=== PATIENT | male | born 1930 | race Caucasian/White ===

== ENCOUNTER 2017-06-01 18:43 | Emergency (ER) | payer MEDICARE, MEDICAID ==
[~2017-06-01] VITALS: Ht 172.7 cm; Wt 82.0 kg
[2017-06-01] MEDS ORDERED: ASPI-1159 PO (19:03)
[2017-06-01] MEDS ORDERED: NEPVIT PO (19:03)
[2017-06-01] MEDS ORDERED: PRAV20TA57 PO (19:03)
[2017-06-01] MEDS ORDERED: FINA5TAB11 PO (19:03)
[2017-06-01] MEDS ORDERED: DILT240C92 PO (19:03)
[2017-06-01] MEDS ORDERED: ONDANSETRON HCL 4MG/2ML VIAL IV STA (19:31)
[2017-06-01 20:28] LABS: BASOPHILS % 0.9 % (0.0-2.0); EOSINOPHILS % 3.5 % (0.0-5.0); HEMATOCRIT. 38.4 % (42.0-52.0); LYMPHOCYTES % 13.7 % (20.0-50.0); MEAN CORPUSCULAR HEMOGLOBIN 30.1 pg (28.0-32.0); MEAN CORPUSCULAR VOLUME 89.2 fL (80.0-94.0); MEAN PLATELET VOLUME 8.6 fl (7.4-10.4); MONOCYTES % 9.4 % (2.0-8.0); NEUTROPHILS % 72.5 % (40.0-76.0); PLATELET 144 x1000/uL (130-400); RED BLOOD CELL COUNT 4.31 mill/uL (4.7-6.1); RED CELL DISTRIBUTION WIDTH 14.9 % (11.6-14.6)
[2017-06-01 20:33] LABS: CHLORIDE 96 mEq/L (98-107)
[2017-06-01 20:36] LABS: CARBON DIOXIDE 25 mEq/L (21-32)
[2017-06-01 22:00] VITALS: BP 161/63
[2017-06-01] MEDS ORDERED: SODIUM CHLORIDE 0.9% 250 ML IV ONE (22:00)
== END 2017-06-01 23:00 | disposition home or self-care (01) ==
LOC: ER 20:07
DX: E87.1 Hypo-osmolality and hyponatremia (principal); I12.0 Hypertensive chronic kidney disease with stage 5 chronic kidney disease or end stage renal disease; N19 Unspecified kidney failure; R11.2 Nausea with vomiting, unspecified; R42 Dizziness and giddiness; Z99.2 Dependence on renal dialysis; Z79.82 Long term (current) use of aspirin
CPT/HCPCS: 36415; 80053; 85025; 93005; 96361; 96374; 99285; J2405; J7050

== ENCOUNTER 2017-12-02 08:09 | Inpatient (IN) | payer MEDICARE, MEDICAID ==
[~2017-12-02] VITALS: Ht 172.7 cm; Wt 79.8 kg
[~2017-12-02 08:09] MED LIST: ASPI-1159 PO; DILT240C92 PO; FINA5TAB11 PO; NEPVIT PO; PRAV20TA57 PO
[2017-12-02] MEDS ORDERED: NITROGLYCERIN OINT 1GM/INCH UDPKT TD STA (08:57)
[2017-12-02 09:17] LABS: BASOPHILS % 0.6 % (0.0-2.0); EOSINOPHILS % 3.2 % (0.0-5.0); HEMATOCRIT. 33.8 % (42.0-52.0); HEMOGLOBIN. 11.2 g/dL (14.0-18.0); LYMPHOCYTES % 10.8 % (20.0-50.0); MEAN CORPUSCULAR HEMOGLOBIN 31.1 pg (28.0-32.0); MEAN CORPUSCULAR VOLUME 93.7 fL (80.0-94.0); MEAN PLATELET VOLUME 8.6 fl (7.4-10.4); MONOCYTES % 9.7 % (2.0-8.0); NEUTROPHILS % 75.7 % (40.0-76.0); PLATELET 187 x1000/uL (130-400); RED BLOOD CELL COUNT 3.61 mill/uL (4.7-6.1); RED CELL DISTRIBUTION WIDTH 16.4 % (11.6-14.6)
[2017-12-02 09:22] LABS: CHLORIDE 97 mEq/L (98-107); D-DIMER 1.45 mg/L FEU (<0.50); INR 1.1; PROTHROMBIN TIME 11.4 sec (9.4-11.6)
[2017-12-02] MEDS ORDERED: VANCOMYCIN 1 G PREMIX 200 ML IV ONE (10:00)
[2017-12-02] MEDS ORDERED: PIPERACILLIN/TAZ 3.375G PREMIX 50 ML IV ONE (10:00)
[2017-12-02] MEDS ORDERED: ONDANSETRON HCL 4MG/2ML VIAL IV PRN (10:15)
[2017-12-02] MEDS ORDERED: CLONIDINE 0.1MG TABLET PO PRN (10:15)
[2017-12-02] MEDS ORDERED: IOHEXOL-350 100 ML BOTTLE ONE (11:22)
[2017-12-02] MEDS: LOSARTAN POTASSIUM 50 MG TABLET PO SCH (15:00)
[2017-12-02 15:36] VITALS: BP 163/78
[2017-12-02] MEDS: FINASTERIDE 5MG TABLET PO SCH (16:45)
[2017-12-02] MEDS: FOLIC ACID/VITAMIN B COMP W-C TABLET PO SCH (16:45)
[2017-12-02] MEDS: ASPIRIN 81MG EC TABLET PO SCH (16:45)
[2017-12-02] MEDS: ENOXAPARIN 30MG/0.3ML SYR SUBCUT SCH ×2 (18:00→20:22)
[2017-12-02 20:00] VITALS: BP 141/79
[2017-12-02] MEDS: METOPROLOL TARTRATE 25MG TABLET PO SCH (20:21)
[2017-12-02] MEDS ORDERED: PNEUMOCOCCAL 23-VAL P-SAC VAC 0.5 ML IM ONE (20:30)
[2017-12-03] VITALS (7 sets, daily range): BP systolic 136–165; BP diastolic 63–85
[2017-12-03 07:41] LABS: EOSINOPHILS % 5.3 % (0.0-5.0); HEMATOCRIT. 28.5 % (42.0-52.0); HEMOGLOBIN. 9.5 g/dL (14.0-18.0); LYMPHOCYTES % 15.6 % (20.0-50.0); MEAN CORPUSCULAR HEMOGLOBIN 31.2 pg (28.0-32.0); MEAN CORPUSCULAR VOLUME 93.5 fL (80.0-94.0); MEAN PLATELET VOLUME 8.8 fl (7.4-10.4); MONOCYTES % 12.5 % (2.0-8.0); NEUTROPHILS % 65.6 % (40.0-76.0); PLATELET 144 x1000/uL (130-400); RED BLOOD CELL COUNT 3.04 mill/uL (4.7-6.1); RED CELL DISTRIBUTION WIDTH 16.5 % (11.6-14.6)
[2017-12-03] MEDS: FINASTERIDE 5MG TABLET PO SCH (08:28)
[2017-12-03] MEDS: ASPIRIN 81MG EC TABLET PO SCH (08:28)
[2017-12-03] MEDS: FOLIC ACID/VITAMIN B COMP W-C TABLET PO SCH (08:28)
[2017-12-03 08:29] LABS: PHOSPHORUS 3.5 mg/dL (2.5-4.9)
[2017-12-03] MEDS: METOPROLOL TARTRATE 25MG TABLET PO SCH ×2 (08:29→21:50)
[2017-12-03] MEDS: LOSARTAN POTASSIUM 50 MG TABLET PO SCH (08:29)
[2017-12-03] MEDS ORDERED: IPRATROPIUM/ALBUTEROL 0.5-3(2.5)MG/3ML NEB HHN PRN (13:30)
[2017-12-03] MEDS: AZITHROMYCIN 500 MG TABLET PO SCH (13:46)
[2017-12-03] MEDS: CEFTRIAXONE 1 G PREMIX 50 ML IV SCH (15:48)
[2017-12-03] MEDS: ENOXAPARIN 30MG/0.3ML SYR SUBCUT SCH (17:50)
[2017-12-03] MEDS ORDERED: EPOETIN ALFA 10000UNITS/ML VIAL SUBCUT SCH (21:00)
[2017-12-04] VITALS: BP 161/83
[2017-12-04 04:00] VITALS: BP 158/80
[2017-12-04 04:25] LABS: CLARITY URINE CLEAR (CLEAR); COLOR URINE YELLOW (YELLOW); KETONES URINE NEGATIVE (NEGATIVE); LEUKOCYTE ESTERASE URINE NEGATIVE (NEGATIVE); NITRITE URINE NEGATIVE (NEGATIVE); OCCULT BLOOD URINE NEGATIVE (NEGATIVE); PH URINE >=9.0 (4.5-8.0); PROTEIN URINE 3+ (NEGATIVE); SPECIFIC GRAVITY URINE 1.015 (1.005-1.030)
[2017-12-04 07:34] LABS: BASOPHILS % 0.6 % (0.0-2.0); EOSINOPHILS % 7.8 % (0.0-5.0); HEMATOCRIT. 29.4 % (42.0-52.0); HEMOGLOBIN. 9.8 g/dL (14.0-18.0); LYMPHOCYTES % 19.1 % (20.0-50.0); MEAN CORPUSCULAR HEMOGLOBIN 31.5 pg (28.0-32.0); MEAN CORPUSCULAR VOLUME 93.8 fL (80.0-94.0); MEAN PLATELET VOLUME 8.7 fl (7.4-10.4); MONOCYTES % 13.2 % (2.0-8.0); NEUTROPHILS % 59.3 % (40.0-76.0); PLATELET 141 x1000/uL (130-400); RED BLOOD CELL COUNT 3.13 mill/uL (4.7-6.1); RED CELL DISTRIBUTION WIDTH 16.4 % (11.6-14.6)
[2017-12-04] MEDS: METOPROLOL TARTRATE 25MG TABLET PO SCH (07:42)
[2017-12-04 08:00] VITALS: BP 140/67
[2017-12-04 08:13] LABS: PHOSPHORUS 5.3 mg/dL (2.5-4.9)
[2017-12-04] MEDS ORDERED: LOSARTAN POTASSIUM 100 MG TABLET PO SCH (09:00)
[2017-12-04] MEDS: CEFTRIAXONE 1 G PREMIX 50 ML IV SCH (11:41)
[2017-12-04] MEDS: FINASTERIDE 5MG TABLET PO SCH (11:41)
[2017-12-04] MEDS: AZITHROMYCIN 500 MG TABLET PO SCH (11:41)
[2017-12-04] MEDS: ASPIRIN 81MG EC TABLET PO SCH (11:41)
[2017-12-04] MEDS: FOLIC ACID/VITAMIN B COMP W-C TABLET PO SCH (11:41)
[2017-12-04 12:00] VITALS: BP 128/62
[2017-12-04 16:00] VITALS: BP 124/50
[2017-12-04 16:14] VITALS: BP 124/80
[2017-12-04] MEDS ORDERED: METOPROLOL TARTRATE 50MG TABLET PO SCH (21:00)
[2017-12-05] MEDS ORDERED: LOSARTAN POTASSIUM 50 MG TABLET PO SCH (09:00)
== END 2017-12-04 17:00 | disposition home or self-care (01) | DRG 193 ==
LOC: ER 08:09 → 6WST 10:05 → EDBEDREQ 10:08 → EDBEDREQTM 10:08 → ENRESERV 14:20
PROVIDERS: ADMIT Internal Medicine; ATTEND Internal Medicine
PROC: 5A1D70Z Performance of Urinary Filtration, Intermittent, Less than 6 Hours Per Day (ICD-10-PCS; principal; 2017-12-02)
PROC: 5A1D70Z Performance of Urinary Filtration, Intermittent, Less than 6 Hours Per Day (ICD-10-PCS; 2017-12-04)
DX: J18.1 Lobar pneumonia, unspecified organism (principal); N18.6 End stage renal disease; J96.01 Acute respiratory failure with hypoxia; I13.2 Hypertensive heart and chronic kidney disease with heart failure and with stage 5 chronic kidney disease, or end stage renal disease; I27.20 Pulmonary hypertension, unspecified; E83.39 Other disorders of phosphorus metabolism; N25.81 Secondary hyperparathyroidism of renal origin; I50.9 Heart failure, unspecified; E66.9 Obesity, unspecified; D63.8 Anemia in other chronic diseases classified elsewhere; N40.0 Benign prostatic hyperplasia without lower urinary tract symptoms; M10.9 Gout, unspecified; I25.10 Atherosclerotic heart disease of native coronary artery without angina pectoris; E78.5 Hyperlipidemia, unspecified; F32.9 Major depressive disorder, single episode, unspecified; N41.9 Inflammatory disease of prostate, unspecified; Z79.899 Other long term (current) drug therapy; Z82.49 Family history of ischemic heart disease and other diseases of the circulatory system; Z99.2 Dependence on renal dialysis; Z83.3 Family history of diabetes mellitus; Z79.82 Long term (current) use of aspirin; Z68.26 Body mass index [BMI] 26.0-26.9, adult
CPT/HCPCS: 36415; 71045; 71275; 80048; 80053; 80061; 81003; 82270; 83036; 83605; 83690; 83735; 83880; 84100; 84484; 85025; 85379; 85610; 87040; 90732; 93005; 93306; 93880; 96365; 96366; 96368; 99285; J0696; J0885; J1650; J2543; J3370; J7050; Q9967

== ENCOUNTER 2019-01-02 12:49 | Emergency (ER) | payer MEDICARE, MEDICAID ==
[~2019-01-02] VITALS: Ht 172.7 cm; Wt 79.0 kg
[2019-01-02 16:15] LABS: BASOPHILS % 0.9 % (0.0-2.0); EOSINOPHILS % 3.3 % (0.0-5.0); HEMATOCRIT. 39.6 % (42.0-52.0); HEMOGLOBIN. 13.3 g/dL (14.0-18.0); LYMPHOCYTES % 20.4 % (20.0-50.0); MEAN CORPUSCULAR HEMOGLOBIN 31.7 pg (28.0-32.0); MEAN CORPUSCULAR VOLUME 94.7 fL (80.0-94.0); MEAN PLATELET VOLUME 8.9 fl (7.4-10.4); MONOCYTES % 13.6 % (2.0-8.0); NEUTROPHILS % 61.8 % (40.0-76.0); PLATELET 197 x1000/uL (130-400); RED BLOOD CELL COUNT 4.18 mill/uL (4.7-6.1); RED CELL DISTRIBUTION WIDTH 15.6 % (11.6-14.6)
[2019-01-02 16:21] LABS: CHLORIDE 96 mEq/L (98-107)
[2019-01-02 16:23] LABS: PARTIAL THROMBOPLASTIN TIME 28.6 sec (23.4-31.0); PROTHROMBIN TIME 10.5 sec (9.6-11.0)
[2019-01-02 16:27] LABS: PHOSPHORUS 4.1 mg/dL (2.5-4.9)
[2019-01-02] MEDS ORDERED: TRAMADOL 50MG TABLET PO ONE (16:45)
[2019-01-02 17:45] VITALS: BP 152/59
== END 2019-01-02 18:00 | disposition home or self-care (01) ==
LOC: ER 12:49 → CANBEDREQ 20:30
DX: M79.671 Pain in right foot (principal); I12.0 Hypertensive chronic kidney disease with stage 5 chronic kidney disease or end stage renal disease; N18.6 End stage renal disease; N17.9 Acute kidney failure, unspecified; Z99.2 Dependence on renal dialysis; Z79.82 Long term (current) use of aspirin
CPT/HCPCS: 36415; 71045; 73630; 83735; 84100; 93005; 93923; 99284

== ENCOUNTER 2019-04-16 15:00 | Inpatient (IN) | payer MEDICARE, MEDICAID ==
[~2019-04-16] VITALS: Ht 342.9 cm; Wt 70.8 kg
[~2019-04-16 15:00] MED LIST changes: -ASPI-1159 PO; +ASPI-1393 PO; +CALC-586 PO; +[UNRECOGNIZED DRUG - OTHER]
[2019-04-16] MEDS ORDERED: SODIUM CHLORIDE 0.9% 1,000 ML IV ONE ×2 (15:34→17:42)
[2019-04-16 17:19] LABS: HEMATOCRIT. 37.3 % (42.0-52.0); HEMOGLOBIN. 12.1 g/dL (14.0-18.0); MEAN CORPUSCULAR VOLUME 92.5 fL (80.0-94.0); MEAN PLATELET VOLUME 7.9 fl (7.4-10.4); PLATELET 154 x1000/uL (130-400); RED BLOOD CELL COUNT 4.03 mill/uL (4.7-6.1); RED CELL DISTRIBUTION WIDTH 16.5 % (11.6-14.6)
[2019-04-16 17:24] LABS: CHLORIDE 98 mEq/L (98-107)
[2019-04-16 17:25] LABS: INR 1.1; PROTHROMBIN TIME 11.4 sec (9.6-11.0)
[2019-04-16 17:33] LABS: PLATELET ESTIMATE NORMAL
[2019-04-16] MEDS ORDERED: VANCOMYCIN 1 G PREMIX 200 ML IV ONE (17:45)
[2019-04-16] MEDS ORDERED: HALOPERIDOL LACTATE 5MG/ML VIAL IM ONE (17:45)
[2019-04-16] MEDS ORDERED: PIPERACILLIN/TAZ 3.375G PREMIX 50 ML IV ONE (17:45)
[2019-04-16] MEDS ORDERED: DIPHENHYDRAMINE 50MG/ML VIAL IV PRN (19:30)
[2019-04-16] MEDS ORDERED: ACETAMINOPHEN 325MG TABLET PO PRN (19:30)
[2019-04-16] MEDS ORDERED: IPRATROPIUM/ALBUTEROL 0.5-3(2.5)MG/3ML NEB INH PRN (19:30)
[2019-04-16] MEDS ORDERED: HYDROCODONE/ACETAMINOPHEN 5/325MG TABLET PO PRN (19:30)
[2019-04-16] MEDS ORDERED: DOCUSATE SODIUM 100MG CAPSULE PO PRN (19:30)
[2019-04-16] MEDS ORDERED: MAGNESIUM/ALUMINUM HYDROXIDE/SIMETHICONE 30ML UDC PO PRN (19:30)
[2019-04-16] MEDS ORDERED: ENOXAPARIN 40MG/0.4ML SYR SUBCUT SCH (19:30)
[2019-04-16] MEDS ORDERED: ONDANSETRON HCL 4MG/2ML INJ IV PRN (19:30)
[2019-04-16] MEDS ORDERED: GUAIFENESIN 200MG/10ML SUGAR FREE UDC PO PRN (19:30)
[2019-04-16] MEDS ORDERED: CLONIDINE 0.1MG TABLET PO PRN (19:30)
[2019-04-16 19:45] LABS: PHOSPHORUS 1.3 mg/dL (2.5-4.9)
[2019-04-16 23:46] LABS: CREATINE KINASE 331 IU/L (39-308)
[2019-04-16 23:47] LABS: CREATINE KINASE MB FRACTION < 1.0 ng/mL (0.5-3.6)
[2019-04-17] VITALS (12 sets, daily range): BP systolic 79–165; BP diastolic 32–71
[2019-04-17 05:00] LABS: BASOPHILS % 0.3 % (0.0-2.0); EOSINOPHILS % 0.8 % (0.0-5.0); HEMATOCRIT. 33.4 % (42.0-52.0); LYMPHOCYTES % 9.5 % (20.0-50.0); MEAN CORPUSCULAR HEMOGLOBIN 30.2 pg (28.0-32.0); MEAN CORPUSCULAR VOLUME 91.8 fL (80.0-94.0); MEAN PLATELET VOLUME 8.4 fl (7.4-10.4); MONOCYTES % 10.7 % (2.0-8.0); NEUTROPHILS % 78.7 % (40.0-76.0); PLATELET 138 x1000/uL (130-400); RED BLOOD CELL COUNT 3.64 mill/uL (4.7-6.1); RED CELL DISTRIBUTION WIDTH 17.1 % (11.6-14.6)
[2019-04-17 05:06] LABS: CHLORIDE 99 mEq/L (98-107)
[2019-04-17 05:13] LABS: LDL CHOLESTEROL 124 mg/dL (5-100)
[2019-04-17 05:14] LABS: HDL CHOLESTEROL 33 mg/dL (40-59)
[2019-04-17 05:15] LABS: CREATINE KINASE 309 IU/L (39-308)
[2019-04-17 05:18] LABS: CREATINE KINASE MB FRACTION < 1.0 ng/mL (0.5-3.6)
[2019-04-17] MEDS: ENOXAPARIN 30MG/0.3ML SYR SUBCUT SCH (09:56)
[2019-04-17] MEDS ORDERED: VANCOMYCIN 500 MG PREMIX 100 ML IV SCH (10:00)
[2019-04-17] MEDS ORDERED: CEFTRIAXONE 1 G PREMIX 50 ML IV SCH ×2 (21:00)
[2019-04-17] MEDS: ATORVASTATIN CALCIUM 20MG TABLET PO SCH (21:22)
[2019-04-18] VITALS (18 sets, daily range): BP systolic 90–142; BP diastolic 29–57
[2019-04-18 07:50] LABS: HEMATOCRIT. 33.6 % (42.0-52.0); MEAN CORPUSCULAR HEMOGLOBIN 30.2 pg (28.0-32.0); MEAN PLATELET VOLUME 8.2 fl (7.4-10.4); PLATELET 126 x1000/uL (130-400); RED BLOOD CELL COUNT 3.65 mill/uL (4.7-6.1); RED CELL DISTRIBUTION WIDTH 17.3 % (11.6-14.6)
[2019-04-18 08:16] LABS: PHOSPHORUS 4.4 mg/dL (2.5-4.9)
[2019-04-18 08:19] LABS: T4 FREE 1.01 ng/dL (0.76-1.46)
[2019-04-18] MEDS: ENOXAPARIN 30MG/0.3ML SYR SUBCUT SCH (09:29)
[2019-04-18] MEDS: ASPIRIN 81MG EC TABLET PO SCH (09:29)
[2019-04-18] MEDS: ATORVASTATIN CALCIUM 20MG TABLET PO SCH (20:46)
[2019-04-19 02:00] VITALS: BP 108/75
[2019-04-19 04:00] VITALS: BP 141/39
[2019-04-19 08:00] VITALS: BP 97/45
[2019-04-19] MEDS: ENOXAPARIN 30MG/0.3ML SYR SUBCUT SCH (08:53)
[2019-04-19] MEDS: ASPIRIN 81MG EC TABLET PO SCH (08:53)
[2019-04-19 09:07] LABS: BASOPHILS % 1.3 % (0.0-2.0); EOSINOPHILS % 7.6 % (0.0-5.0); HEMATOCRIT. 31.9 % (42.0-52.0); HEMOGLOBIN. 10.4 g/dL (14.0-18.0); MEAN CORPUSCULAR HEMOGLOBIN 30.2 pg (28.0-32.0); MEAN CORPUSCULAR VOLUME 92.6 fL (80.0-94.0); MEAN PLATELET VOLUME 8.9 fl (7.4-10.4); MONOCYTES % 14.8 % (2.0-8.0); NEUTROPHILS % 56.3 % (40.0-76.0); PLATELET 86 x1000/uL (130-400); RED BLOOD CELL COUNT 3.44 mill/uL (4.7-6.1)
[2019-04-19 09:21] LABS: PLATELET ESTIMATE SLIGHTLY DECREASED
[2019-04-19 09:39] LABS: PHOSPHORUS 3.6 mg/dL (2.5-4.9)
[2019-04-19 10:00] VITALS: BP 128/48
[2019-04-19 10:28] VITALS: BP 128/48
[2019-04-19] MEDS ORDERED: VANCOMYCIN 1 G PREMIX 200 ML IV SCH (11:00)
[2019-04-19 12:02] VITALS: BP 148/48
== END 2019-04-19 14:20 | disposition home or self-care (01) | DRG 871 ==
LOC: ER 15:15 → 5EST 18:41 → EDBEDREQTM 18:49 → ENRESERV 20:51
PROVIDERS: ADMIT Internal Medicine; ATTEND Internal Medicine
PROC: 5A1D70Z Performance of Urinary Filtration, Intermittent, Less than 6 Hours Per Day (ICD-10-PCS; principal; 2019-04-17)
DX: A41.9 Sepsis, unspecified organism (principal); N18.6 End stage renal disease; G93.40 Encephalopathy, unspecified; N25.81 Secondary hyperparathyroidism of renal origin; I13.2 Hypertensive heart and chronic kidney disease with heart failure and with stage 5 chronic kidney disease, or end stage renal disease; R65.20 Severe sepsis without septic shock; D63.8 Anemia in other chronic diseases classified elsewhere; E78.5 Hyperlipidemia, unspecified; I95.9 Hypotension, unspecified; D69.6 Thrombocytopenia, unspecified; D72.821 Monocytosis (symptomatic); E78.00 Pure hypercholesterolemia, unspecified; I27.20 Pulmonary hypertension, unspecified; I35.0 Nonrheumatic aortic (valve) stenosis; I50.9 Heart failure, unspecified; N40.0 Benign prostatic hyperplasia without lower urinary tract symptoms; Z79.82 Long term (current) use of aspirin; Z95.2 Presence of prosthetic heart valve; Z99.2 Dependence on renal dialysis; Z79.899 Other long term (current) drug therapy
CPT/HCPCS: 36415; 71045; 80048; 80061; 80202; 82550; 82553; 82962; 83605; 83735; 84100; 84145; 84439; 84443; 84481; 84484; 93005; 93306; 93970; 96365; 96375; 99291; J0696; J1630; J1650; J2543; J3370; J7030; J7050

== ENCOUNTER 2020-02-26 19:17 | Inpatient (IN) | payer MEDICARE, MEDICAID ==
[~2020-02-26] VITALS: Ht 172.7 cm; Wt 77.1 kg
[~2020-02-26 19:17] MED LIST changes: -ASPI-1393 PO; +ASPI-1497 PO; -DILT240C92 PO
[2020-02-26] MEDS ORDERED: ONDANSETRON HCL 4MG/2ML INJ IV STA (19:50)
[2020-02-26 20:25] LABS: BASOPHILS % 0.6 % (0.0-2.0); EOSINOPHILS % 0.7 % (0.0-5.0); HEMATOCRIT. 37.8 % (42.0-52.0); HEMOGLOBIN. 12.8 g/dL (14.0-18.0); LYMPHOCYTES % 16.2 % (20.0-50.0); MEAN CORPUSCULAR HEMOGLOBIN 31.3 pg (28.0-32.0); MEAN CORPUSCULAR VOLUME 92.3 fL (80.0-94.0); MEAN PLATELET VOLUME 8.6 fl (7.4-10.4); MONOCYTES % 13.6 % (2.0-8.0); NEUTROPHILS % 68.9 % (40.0-76.0); PLATELET 149 x1000/uL (130-400)
[2020-02-26 20:28] LABS: CHLORIDE 91 mEq/L (98-107)
[2020-02-26 20:29] LABS: INR 1.1; PROTHROMBIN TIME 11.6 sec (9.6-11.0)
[2020-02-26] MEDS ORDERED: HYDRALAZINE 20MG/ML VIAL IV ONE (20:45)
[2020-02-26] MEDS ORDERED: ASPIRIN 300MG SUPP PR ONE (21:45)
[2020-02-27] MEDS ORDERED: ASPIRIN 325MG EC TABLET PO ONE
[2020-02-27] MEDS ORDERED: MAGNESIUM/ALUMINUM HYDROXIDE/SIMETHICONE 30ML UDC PO PRN (01:15)
[2020-02-27] MEDS ORDERED: GUAIFENESIN 200MG/10ML SUGAR FREE UDC PO PRN (01:15)
[2020-02-27] MEDS ORDERED: ACETAMINOPHEN 325MG TABLET PO PRN ×2 (01:15)
[2020-02-27] MEDS ORDERED: DOCUSATE SODIUM 100MG CAPSULE PO PRN (01:15)
[2020-02-27] MEDS ORDERED: ZOLPIDEM TARTRATE 5MG TABLET PO PRN (01:15)
[2020-02-27] MEDS ORDERED: ONDANSETRON HCL 4MG/2ML INJ IV PRN (01:15)
[2020-02-27 04:30] VITALS: BP 161/65
[2020-02-27 04:59] VITALS: BP 161/65
[2020-02-27] MEDS: CLONIDINE 0.1MG TABLET PO PRN (05:02)
[2020-02-27] MEDS: SODIUM CHLORIDE 0.9% INJ 3ML FLUSH IVF SCH ×3 (06:13→20:18)
[2020-02-27 08:30] VITALS: BP 116/60
[2020-02-27] MEDS: FOLIC ACID/VITAMIN B COMP W-C TABLET PO SCH (08:44)
[2020-02-27] MEDS: ASPIRIN 81MG EC TABLET PO SCH (08:44)
[2020-02-27] MEDS: ENOXAPARIN 30MG/0.3ML SYR SUBCUT SCH (08:44)
[2020-02-27 12:30] VITALS: BP_SYST 101; BP_SYST 140; BP_SYST 155; BP_DIAS 54; BP_DIAS 70
[2020-02-27 16:00] VITALS: BP_SYST 145; BP_SYST 152; BP_SYST 157; BP_DIAS 60; BP_DIAS 65; BP_DIAS 67
[2020-02-27 20:00] VITALS: BP 152/54
[2020-02-27] MEDS: ATORVASTATIN CALCIUM 20MG TABLET PO SCH (20:18)
[2020-02-28] VITALS (7 sets, daily range): BP systolic 130–176; BP diastolic 50–69
[2020-02-28] MEDS: SODIUM CHLORIDE 0.9% INJ 3ML FLUSH IVF SCH ×3 (05:43→21:04)
[2020-02-28 06:33] LABS: BASOPHILS % 1.1 % (0.0-2.0); HEMATOCRIT. 35.6 % (42.0-52.0); MEAN CORPUSCULAR HEMOGLOBIN 31.8 pg (28.0-32.0); MEAN CORPUSCULAR VOLUME 94.4 fL (80.0-94.0); MEAN PLATELET VOLUME 8.5 fl (7.4-10.4); NEUTROPHILS % 59.9 % (40.0-76.0); PLATELET 135 x1000/uL (130-400); RED BLOOD CELL COUNT 3.77 mill/uL (4.7-6.1); RED CELL DISTRIBUTION WIDTH 18.4 % (11.6-14.6)
[2020-02-28 07:59] LABS: PHOSPHORUS 4.6 mg/dL (2.5-4.9)
[2020-02-28] MEDS: ASPIRIN 81MG EC TABLET PO SCH (09:39)
[2020-02-28] MEDS: LOSARTAN POTASSIUM 25 MG TABLET PO SCH (09:39)
[2020-02-28] MEDS: FOLIC ACID/VITAMIN B COMP W-C TABLET PO SCH (09:39)
[2020-02-28] MEDS: ENOXAPARIN 30MG/0.3ML SYR SUBCUT SCH (09:40)
[2020-02-28] MEDS: CLONIDINE 0.1MG TABLET PO PRN (12:29)
[2020-02-28] MEDS: AMLODIPINE 5MG TABLET PO SCH ×2 (12:29→21:04)
[2020-02-28] MEDS ORDERED: SODIUM POLYSTYRENE SULFONATE 15 G/60 ML BOT PO NR (16:00)
[2020-02-28] MEDS: ATORVASTATIN CALCIUM 20MG TABLET PO SCH (21:04)
[2020-02-29] VITALS: BP 177/58
[2020-02-29] MEDS: CLONIDINE 0.1MG TABLET PO PRN (00:24)
[2020-02-29 04:00] VITALS: BP 155/43
[2020-02-29] MEDS: SODIUM CHLORIDE 0.9% INJ 3ML FLUSH IVF SCH ×3 (06:00→21:21)
[2020-02-29 07:09] LABS: BASOPHILS % 1.6 % (0.0-2.0); EOSINOPHILS % 7.4 % (0.0-5.0); HEMATOCRIT. 29.8 % (42.0-52.0); HEMOGLOBIN. 10.1 g/dL (14.0-18.0); LYMPHOCYTES % 22.2 % (20.0-50.0); MEAN CORPUSCULAR HEMOGLOBIN 31.8 pg (28.0-32.0); MEAN PLATELET VOLUME 8.3 fl (7.4-10.4); MONOCYTES % 11.5 % (2.0-8.0); NEUTROPHILS % 57.3 % (40.0-76.0); PLATELET 124 x1000/uL (130-400); RED BLOOD CELL COUNT 3.17 mill/uL (4.7-6.1); RED CELL DISTRIBUTION WIDTH 17.7 % (11.6-14.6)
[2020-02-29 07:21] LABS: PHOSPHORUS 4.5 mg/dL (2.5-4.9)
[2020-02-29 08:00] VITALS: BP 183/68
[2020-02-29] MEDS: FOLIC ACID/VITAMIN B COMP W-C TABLET PO SCH (09:16)
[2020-02-29] MEDS: LOSARTAN POTASSIUM 25 MG TABLET PO SCH (09:16)
[2020-02-29] MEDS: ASPIRIN 81MG EC TABLET PO SCH (09:17)
[2020-02-29] MEDS: AMLODIPINE 5MG TABLET PO SCH ×2 (09:17→21:24)
[2020-02-29] MEDS: ENOXAPARIN 30MG/0.3ML SYR SUBCUT SCH (09:18)
[2020-02-29 12:00] VITALS: BP_SYST 168; BP_SYST 184; BP_DIAS 66; BP_DIAS 73
[2020-02-29] MEDS ORDERED: CLONIDINE 0.1MG TABLET PO PRN (13:30)
[2020-02-29] MEDS: CLONIDINE 0.2MG TABLET PO SCH ×2 (13:43→21:20)
[2020-02-29] MEDS ORDERED: CLONIDINE 0.1MG TABLET PO SCH (14:00)
[2020-02-29 16:00] VITALS: BP 167/68
[2020-02-29 20:00] VITALS: BP_SYST 132; BP_SYST 137; BP_DIAS 50; BP_DIAS 51
[2020-02-29] MEDS: ATORVASTATIN CALCIUM 20MG TABLET PO SCH (21:20)
[2020-03-01] VITALS: BP_SYST 150; BP_SYST 158; BP_DIAS 51; BP_DIAS 54
[2020-03-01 04:00] VITALS: BP 158/58
[2020-03-01] MEDS: SODIUM CHLORIDE 0.9% INJ 3ML FLUSH IVF SCH ×2 (05:40→14:43)
[2020-03-01] MEDS: CLONIDINE 0.2MG TABLET PO SCH (05:40)
[2020-03-01 08:00] VITALS: BP 104/56
[2020-03-01] MEDS: FOLIC ACID/VITAMIN B COMP W-C TABLET PO SCH (08:12)
[2020-03-01] MEDS: ASPIRIN 81MG EC TABLET PO SCH (08:13)
[2020-03-01] MEDS: ENOXAPARIN 30MG/0.3ML SYR SUBCUT SCH ×2 (08:13→08:24)
[2020-03-01] MEDS: LOSARTAN POTASSIUM 50 MG TABLET PO SCH ×2 (08:13→08:24)
[2020-03-01] MEDS: AMLODIPINE 5MG TABLET PO SCH ×2 (08:16→08:24)
[2020-03-01 08:20] LABS: BASOPHILS % 1.4 % (0.0-2.0); EOSINOPHILS % 7.4 % (0.0-5.0); HEMATOCRIT. 29.4 % (42.0-52.0); HEMOGLOBIN. 10.1 g/dL (14.0-18.0); LYMPHOCYTES % 25.2 % (20.0-50.0); MEAN CORPUSCULAR HEMOGLOBIN 31.8 pg (28.0-32.0); MEAN PLATELET VOLUME 8.5 fl (7.4-10.4); MONOCYTES % 9.9 % (2.0-8.0); NEUTROPHILS % 56.1 % (40.0-76.0); PLATELET 118 x1000/uL (130-400); RED BLOOD CELL COUNT 3.16 mill/uL (4.7-6.1); RED CELL DISTRIBUTION WIDTH 17.8 % (11.6-14.6)
[2020-03-01 08:45] LABS: PHOSPHORUS 6.1 mg/dL (2.5-4.9)
[2020-03-01 09:05] VITALS: BP 113/53
[2020-03-01] MEDS ORDERED: HYDRALAZINE HCL 10MG TABLET PO SCH ×2 (14:00→21:00)
[2020-03-01] MEDS ORDERED: AMLO-375 MT (14:46)
[2020-03-01] MEDS ORDERED: LOSA50TA41 MT (14:46)
[2020-03-01] MEDS ORDERED: SEVE800T8 MT (14:47)
[2020-03-01] MEDS ORDERED: HYDR-4133 MT (14:47)
[2020-03-01 14:51] VITALS: BP 143/59
[2020-03-01] MEDS ORDERED: SEVELAMER CARBONATE 800 MG TABLET PO SCH (17:15)
== END 2020-03-01 16:00 | disposition home or self-care (01) | DRG 70 ==
LOC: ER 19:54 → MICUSO 22:21 → EDBEDREQTM 22:23 → EDBEDREQ 22:23 → 5WST 02-27 04:51
PROVIDERS: ADMIT Internal Medicine; ATTEND Internal Medicine
PROC: 5A1D70Z Performance of Urinary Filtration, Intermittent, Less than 6 Hours Per Day (ICD-10-PCS; principal; 2020-02-27)
PROC: 5A1D70Z Performance of Urinary Filtration, Intermittent, Less than 6 Hours Per Day (ICD-10-PCS; 2020-03-01)
DX: G93.41 Metabolic encephalopathy (principal); N18.6 End stage renal disease; I42.9 Cardiomyopathy, unspecified; I13.2 Hypertensive heart and chronic kidney disease with heart failure and with stage 5 chronic kidney disease, or end stage renal disease; N25.81 Secondary hyperparathyroidism of renal origin; I35.0 Nonrheumatic aortic (valve) stenosis; E83.39 Other disorders of phosphorus metabolism; E78.5 Hyperlipidemia, unspecified; D64.9 Anemia, unspecified; E87.5 Hyperkalemia; I50.9 Heart failure, unspecified; E78.00 Pure hypercholesterolemia, unspecified; R47.1 Dysarthria and anarthria; N40.0 Benign prostatic hyperplasia without lower urinary tract symptoms; M10.9 Gout, unspecified; F03.90 Unspecified dementia, unspecified severity, without behavioral disturbance, psychotic disturbance, mood disturbance, and anxiety; D69.6 Thrombocytopenia, unspecified; I44.0 Atrioventricular block, first degree; R00.1 Bradycardia, unspecified; Z99.2 Dependence on renal dialysis; Z95.2 Presence of prosthetic heart valve; Z79.82 Long term (current) use of aspirin; Z86.73 Personal history of transient ischemic attack (TIA), and cerebral infarction without residual deficits; Z79.899 Other long term (current) drug therapy
CPT/HCPCS: 36415; 70551; 71045; 80048; 80053; 80061; 82962; 83735; 84100; 84484; 85025; 93005; 93306; 93880; 93970; 97116; 97162; 99291; J0360; J1650; J2405